=== PATIENT | female | born 1950 | race Caucasian/White ===

== ENCOUNTER → 2018-08-25 | Outpatient (CLI) | payer MEDICARE ==
[~2018-08-25] MED LIST: AMBIEN10 MG PO; ASPIRIN81 M1; ATORVASTATIN CA20 MG; CALCIUM600 MG; CULTURELLE1 EACH; DEXILANT60 MG; FOLIC ACID1 MG; HYOSCYAMINE0.125 M2 PO; METHOTREXA25 MG/1 ML; METOPROLOL SUCC50 MG PO; METROGEL; MULTIVITAMIN; OMEGA 3 KRILL OIL; PAROXETINE HC37.5 MG PO; PREMARIN0.625 MG; RAMIPRIL10 MG PO; SOMA350 MG PO; SYNTHROID88 MCG; VICOPROFEN 2001 EACH; VITAMIN D5000 UNIT PO; XANAX0.5 MG
== END ==
LOC: RAD 08:56
PROVIDERS: ATTEND Family Medicine
DX: I10 Essential (primary) hypertension (principal)
CPT/HCPCS: 93306

== ENCOUNTER 2019-03-18 01:26 | Inpatient (IN) | payer MEDICARE ==
[~2019-03-18] VITALS: Ht 154.9 cm; Wt 99.8 kg
[2019-03-18] VITALS (8 sets, daily range): BP systolic 108–116; BP diastolic 52–65
[2019-03-18] MEDS ORDERED: MORPHINE SULFATE 2 MG/ML SYR 1ML IV STA (01:28)
[2019-03-18] MEDS ORDERED: PANTOPRAZOLE 40 MG 10ML VIAL IV STA ×2 (01:28→04:47)
[2019-03-18] MEDS ORDERED: ONDANSETRON HCL INJ 2MG/ML 2ML 2 MG/ML VIAL IV STA (01:28)
[2019-03-18] MEDS ORDERED: SODIUM CHLORIDE 0.9% 1000ML 1,000 ML IV ONE (01:30)
--- OUTSIDE RECORDS SUMMARY | 2019-03-18 01:38 | XMS REPORT ---
Author Author [facility] Address Unknown Phone Unavailable Care Team Providers Care Retail Store Associate Name Role Phone Unavailable Unavailable Payers Payer Name Policy Type Policy Number Effective Date Expiration Date Problems This patient has no known problems. Allergies, Adverse Reactions, Alerts Allergy Name Allergy Type Status Severity Reaction(s) Onset Date Inactive Date Treating Clinician Comments CODEINE DA Active U 2008-09-10 00:00:00 No Known Contrast Allergies DA Active U 2008-09-10 00:00:00 No Known Food Allergies DA Active U 2008-09-10 00:00:00 No Known Other Allergies DA Active U 2008-09-10 00:00:00 PENICILLIN DA Active U 2008-09-10 00:00:00 Medications This patient has no known medications.
[2019-03-18 01:48] LABS: BILIRUBIN,URINE NEGATIVE (NEGATIVE); CLARITY,URINE CLEAR (CLEAR); COLOR,URINE YELLOW (YELLOW); KETONES,URINE NEGATIVE (NEGATIVE); LEUKOCYTE ESTERASE ,URINE NEGATIVE (NEGATIVE); NITRITE,URINE NEGATIVE (NEGATIVE); PROTEIN,URINE DIPSTICK TRACE (NEGATIVE); URINE UROBILINOGEN 0.2 mg/dL (0.2 - 1)
[2019-03-18] MEDS ORDERED: PANTOPRAZOLE 40 MG 10ML VIAL ONE (02:04)
[2019-03-18] MEDS ORDERED: ONDANSETRON HCL INJ 2MG/ML 2ML 2 MG/ML VIAL ONE (02:04)
[2019-03-18] MEDS ORDERED: SODIUM CHLORIDE 0.9% 1000ML 1,000 ML ONE (02:04)
[2019-03-18 02:06] LABS: BACTERIA,URINE FEW /HPF; EPITHELIAL CELLS,URINE RARE /LPF; WBC,URINE (MAN) 0-5 /HPF (0-5)
[2019-03-18 02:08] LABS: ALANINE AMINOTRANSFERASE 29 IU/L (0-55); ALBUMIN 3.4 g/dL (3.5-5.0); ALBUMIN/GLOBULIN RATIO 1.1 (0.8-2.0); ALKALINE PHOSPHATASE 103 IU/L (40-150); ANION GAP 15.2 mmol/L (8-16); BLOOD UREA NITROGEN 13 mg/dL (7-26); BUN/CREATININE RATIO 13 (6-25); CALCIUM 9.1 mg/dL (8.4-10.2); CARBON DIOXIDE 22 mmol/L (22-29); CHLORIDE 109 mmol/L (98-107); CREATINE KINASE 57 IU/L (29-168); CREATININE, SERUM 0.98 mg/dL (0.57-1.11); EST GLOMERULAR FILTRATION RATE 56 ML/MIN (60-); GLUCOSE 155 mg/dL (74-118); POTASSIUM 4.2 mmol/L (3.5-5.1); SODIUM 142 mmol/L (136-145)
[2019-03-18 02:11] LABS: BASOPHILS % 0.2 % (0.0-1.0); EOSINOPHILS # (AUTO) 0.1 (0.0-0.4); EOSINOPHILS % 0.6 % (0.0-6.0); HEMATOCRIT 46.7 % (34.2-44.1); HEMOGLOBIN 14.6 g/dL (12.0-16.0); LYMPHOCYTES # (AUTO) 0.4 (1.0-3.2); MEAN CORPUSCULAR HGB CONC 31.3 g/dL (31-35); MEAN CORPUSCULAR VOLUME 83.2 fL (81-99); MONOCYTES # (AUTO) 0.6 (0.2-0.8); MONOCYTES % 3.4 % (4.4-11.3); NEUTROPHILS # (AUTO) 16.7 (2.1-6.9); NEUTROPHILS % 93.5 % (38.7-80.0); PLATELET COUNT 309 x10e3/uL (140-360); RED BLOOD COUNT 5.61 x10e6/uL (3.6-5.1); RED CELL DISTRIBUTION WIDTH 15.9 % (11.7-14.4)
[2019-03-18] MEDS ORDERED: MORPHINE SULFATE 2 MG/ML SYR 1ML ONE (02:12)
[2019-03-18] MEDS ORDERED: PROMETHAZINE HCL (IM) 25 MG/ML VIAL IM ONE (02:15)
[2019-03-18 02:55] LABS: AMYLASE 164 U/L (25-125); LIPASE 332 U/L (8-78)
[2019-03-18] MEDS ORDERED: IOPAMIDOL 370 MG/ML 200 ML INFUS..BTL INJ ONE (03:41)
[2019-03-18] MEDS ORDERED: SODIUM CHLORIDE 0.9% 50ML 50 ML ONE (03:41)
--- NOTE | 2019-03-18 04:26 | Diagnostic Imaging Report ---
CT Abdomen And Pelvis with Intravenous Contrast INDICATION: Intermittent upper abdominal pain, nausea, vomiting, diarrhea ^abd pain ^[id number] ^0350 ^Y TECHNIQUE: Thin collimation axial images obtained from the diaphragm to the level of the pubic symphysis following the uneventful administration of 100 cc of low osmolar, nonionic intravenous contrast. Dose reduction techniques used: Automated exposure control, adjustment of the mAs and/or kVp according to patient size, standardized low-dose protocol, and/or iterative reconstruction technique. RADIATION DOSE: Total DLP: 782.16 mGy*cm Estimated effective dose: (DLP x 0.015 x size factor) mSv CTDIvol has been reviewed. It is below the limits set by the Radiation Protocol Committee (RPC). COMPARISON: None. ABDOMEN FINDINGS: Lung Bases: Bibasilar atelectasis. Visualized portion of the mediastinum is normal. Liver: Mild steatosis. No evidence for mass. Gallbladder: Absent. No biliary ductal dilatation. Pancreas: Normal attenuation without mass or ductal dilatation. Spleen: Normal in size. No evidence of mass. Adrenal Glands: No evidence for mass. Kidneys: Right: Normal enhancement. Subcentimeter low attenuating lesion in the upper pole is likely a cyst. No hydronephrosis. Left: Normal enhancement. No soft tissue mass. No hydronephrosis. Lymph Nodes: No lymphadenopathy. Aorta: Normal in diameter PELVIS FINDINGS: Bowel: Stomach: Distended with fluid and appears normal. Small Bowel: Fluid throughout. No focal mural thickening or associated inflammation. Large Bowel: Fluid present throughout. No focal mural thickening or associated inflammation Appendix: Not visualized and may be absent or collapsed. Bladder: Normal. The uterus is absent. No adnexal mass. Peritoneum/retroperitoneum: No free fluid or fluid collection. Bones: Mild degenerative changes of the spine. Soft tissues: A stimulator wire is in the right pelvis terminating in the piriformis muscle. The spinal stimulator is in the posterior right pelvis. IMPRESSION: 1. Fluid throughout the gastrointestinal system without associated inflammation. This may be secondary to gastroenteritis. No evidence of bowel obstruction. 2. Mild steatosis. Signed by: Dr. Janine Aguirre MD on 03/18/2019 4:22 AM
[2019-03-18] MEDS ORDERED: HYDROMORPHONE 1MG/1ML INJ IV PRN (05:00)
[2019-03-18] MEDS: LEVOFLOXACIN 500MG/D5W 100ML 100 ML IV SCH (05:08)
[2019-03-18] MEDS: SODIUM CHLORIDE 0.9% 1000ML 1,000 ML IV SCH ×4 (05:08→23:01)
[2019-03-18] MEDS: ONDANSETRON HCL INJ 2MG/ML 2ML 2 MG/ML VIAL IV PRN (06:00)
[2019-03-18] MEDS: METRONIDAZOLE 500MG/NS 100ML 100 ML IV SCH ×4 (06:00→23:50)
[2019-03-18 06:58] LABS: CHOL/HDL RATIO 2.6 (3.0-3.6)
[2019-03-18] MEDS ORDERED: ACETAMINOPHEN 1000 MG/100 ML IV PRN (07:00)
--- NOTE | 2019-03-18 07:00 | NUR ---
BEDSIDE REPORT RECEIVED FROM NIGHT RN. PT DENIES NEEDS AT THIS TIME.
[2019-03-18] MEDS ORDERED: DEXILANT60 MG PO (07:18)
[2019-03-18] MEDS ORDERED: LIOTHYRONINE SO5 MCG PO (07:18)
[2019-03-18] MEDS ORDERED: RAMIPRIL5 MG PO (07:18)
[2019-03-18] MEDS ORDERED: SYNTHROID88 MCG PO (07:18)
[2019-03-18] MEDS ORDERED: NORVASC5 MG PO (07:18)
[2019-03-18] MEDS ORDERED: HYDRALAZINE HCL 20 MG/ML VIAL IV PRN (07:30)
[2019-03-18] MEDS ORDERED: PANTOPRAZOLE 40 MG 10ML VIAL IV SCH (09:00)
[2019-03-18] MEDS: PANTOPRAZOLE 40 MG 10ML VIAL IV SCH (09:31)
--- NOTE | 2019-03-18 12:07 | History and Physical ---
REASON FOR ADMISSION: The patient is a 68-year-old female, who comes in with acute abdominal pain and diarrhea and dehydration. HISTORY OF PRESENT ILLNESS: Ms. Humphries is a 68-year-old with history of hypertension, hyperlipidemia, was in usual state of health until the patient was having lunch with her children. The patient noticed that she started to have some fever and congestion, and the patient also had some diarrhea. Apparently, the family did go through a gastrointestinal virus that has been ongoing. The patient thought this would be the case and decided to wait, but over the evening the patient's abdominal pain increased in intensity. The patient had florid amount of diarrhea and the patient could not move because of muscle pain. The patient came in here and was admitted for dehydration, and also for questionable pancreatitis because of elevated lipase levels. PAST MEDICAL HISTORY: History of hypertension, history of hypothyroidism, history of hyperlipidemia, history of reflux esophagitis. MEDICATIONS: As per medical reconciliation sheet. PAST SURGICAL HISTORY: Appendectomy, cholecystectomy, hysterectomy, knee replacements in the past. ALLERGIES: ALLERGIC TO PENICILLIN AND CODEINE. SOCIAL HISTORY: No EtOH. No IV drug abuse. Lives with . FAMILY HISTORY: History of hypertension and dementia in the family. REVIEW OF SYSTEMS: Negative for chest pain. No shortness of breath. Positive for nausea. Positive for vomiting. Positive for diarrhea. No rectal bleeding. No constipation. Abdominal pain positive. No diplopia. Positive for headaches. No blurry vision. PHYSICAL EXAMINATION: VITAL SIGNS: Temperature is 100.6, pulse of 94, respirations of 18, blood pressure is 116/65, pulse oximetry of 97% O2 on room air. HEENT: Normocephalic, atraumatic. The patient appears sick. No icterus present. CVS: S1 and S2 normal. Regular rate and rhythm. ABDOMEN: Slightly distended. Nontender. EXTREMITIES: No clubbing no cyanosis, and/or no edema. IMAGING STUDIES: 1. Abdominal CT shows fluid throughout the gastrointestinal system with associated inflammation secondary to gastritis. 2. Mild steatosis. LABORATORY VALUES: Initial white count of 17,000, hemoglobin of 14.6, hematocrit of 46.7, neutrophil count is 93.5. Chemistry; sodium 142, potassium 4.2, BUN of 13, creatinine 0.98. ALT and AST normal. Troponin is less than 0.001. Amylase is 164, lipase is 332, total HDL was 58. ASSESSMENT: 1. Pancreatitis by labs. 2. Gastroenteritis upon examination. 3. Dehydration. 4. Leukocytosis. 5. History of hypertension. 6. History of hyperlipidemia. 7. History of hypothyroidism. PLAN: At this point, we will keep the patient n.p.o. The patient is on 175 mL of normal saline at this time. We will keep her on till 6 o'clock and taper off to 125 mL an hour. The patient is getting Levaquin and Flagyl at this time, acetaminophen through IV. The patient is also on hydromorphone 1 mg q.6 hours as needed for pain and also the patient is getting Zofran IV q.4 hours as needed. Further recommendation per clinical course. Medications will be reconciled once the patient is started back on p.o. feedings. At this time, we will keep her on IV medications including hydralazine for blood pressure control. Further recommendation per clinical course. We will continue to monitor the patient. Blood work will be repeated tomorrow. MD HARDY Tsai/MODL /[id number]
[2019-03-19] VITALS (8 sets, daily range): BP systolic 95–134; BP diastolic 48–62
[2019-03-19] MEDS: LEVOFLOXACIN 500MG/D5W 100ML 100 ML IV SCH (04:42)
[2019-03-19 05:24] LABS: BASOPHILS % 0.4 % (0.0-1.0); EOSINOPHILS # (AUTO) 0.1 (0.0-0.4); EOSINOPHILS % 1.1 % (0.0-6.0); HEMATOCRIT 37.9 % (34.2-44.1); HEMOGLOBIN 11.6 g/dL (12.0-16.0); LYMPHOCYTES # (AUTO) 1.3 (1.0-3.2); LYMPHOCYTES % 22.2 % (18.0-39.1); MEAN CORPUSCULAR HEMOGLOBIN 25.9 pg (28-32); MEAN CORPUSCULAR HGB CONC 30.6 g/dL (31-35); MEAN CORPUSCULAR VOLUME 84.6 fL (81-99); MONOCYTES # (AUTO) 0.5 (0.2-0.8); MONOCYTES % 8.7 % (4.4-11.3); NEUTROPHILS # (AUTO) 3.8 (2.1-6.9); NEUTROPHILS % 67.2 % (38.7-80.0); PLATELET COUNT 202 x10e3/uL (140-360); RED BLOOD COUNT 4.48 x10e6/uL (3.6-5.1); RED CELL DISTRIBUTION WIDTH 16.5 % (11.7-14.4)
[2019-03-19 05:46] LABS: ALANINE AMINOTRANSFERASE 38 IU/L (0-55); ALBUMIN 2.5 g/dL (3.5-5.0); ALBUMIN/GLOBULIN RATIO 0.9 (0.8-2.0); ALKALINE PHOSPHATASE 61 IU/L (40-150); AMYLASE 25 U/L (25-125); ANION GAP 9.7 mmol/L (8-16); BLOOD UREA NITROGEN 14 mg/dL (7-26); BUN/CREATININE RATIO 18 (6-25); CALCIUM 8.5 mg/dL (8.4-10.2); CARBON DIOXIDE 22 mmol/L (22-29); CHLORIDE 112 mmol/L (98-107); CREATININE, SERUM 0.79 mg/dL (0.57-1.11); EST GLOMERULAR FILTRATION RATE > 60 ML/MIN (60-); GLUCOSE 100 mg/dL (74-118); LIPASE 14 U/L (8-78); POTASSIUM 3.7 mmol/L (3.5-5.1); SODIUM 140 mmol/L (136-145)
[2019-03-19] MEDS: METRONIDAZOLE 500MG/NS 100ML 100 ML IV SCH ×3 (06:21→18:04)
--- NOTE | 2019-03-19 07:00 | NUR ---
BEDSIDE SHIFT REPORT RECEIVED FROM THE REHABILITATION SERVICES AIDE RN. EDUCATED PT ABOUT FALL PRECAUTIONS. CALL LIGHT WITH IN EASY REACH. INSTRUCTED PT TO USE CALL LIGHT FOR ALL THE NEEDS. PT VERBALIZED UNDERSTANDING. BED IS LOW AND LOCKED. SIDE RAILS X2. PT DENIES NEEDS AT THIS TIME.
[2019-03-19] MEDS: SODIUM CHLORIDE 0.9% 1000ML 1,000 ML IV SCH ×2 (07:04→15:55)
--- NOTE | 2019-03-19 07:23 | Progress Note ---
DATE: 03/19/2019 SUBJECTIVE: The patient came in with acute gastroenteritis and also pancreatitis. Currently, the patient is feeling better, still having diarrhea and continues with some nausea. No chest pain. No shortness of breath. The patient is asking for fluids at this time. OBJECTIVE: VITAL SIGNS: Temperature is 97.5, T-max is 100.1, pulse of 87, respirations of 18, blood pressure is 121/58, pulse oximetry of 97% on 2 L of nasal cannula. HEENT: Normocephalic and atraumatic. Pupils are reactive to light and accommodation. The patient has no icterus present. CVS: S1 and S2 normal. Regular rate and rhythm. ABDOMEN: Tender in the epigastrium. EXTREMITIES: No clubbing, no cyanosis, no edema. MEDICATIONS: The patient is on Flagyl, Levaquin, pantoprazole, and Zofran. The patient is on hydralazine IV for hypertension control and hydromorphone for pain. LABORATORY VALUES: White count has come down to 5.62, hemoglobin of 11.6, hematocrit 37.9, neutrophil count is 67.2. No imaging studies were done today, and lipase has normalized too. ASSESSMENT: 1. Pancreatitis, resolving. 2. Gastroenteritis. 3. Dehydration. 4. Leukocytosis. 5. Hypertension. 6. Hyperlipidemia. 7. Hypothyroidism. PLAN: The patient's diet can be advanced from clear liquid to full liquid by the evening and then probably soft mechanical tonight and the patient is tolerating food, can be discharged in the morning on Levaquin and Flagyl. Further recommendation per clinical course. We will continue to monitor the patient. MD HARDY Tsai/MODL /[id number]
[2019-03-19 07:42] LABS: ANISOCYTOSIS SLIGHT; EOSINOPHILS % (MANUAL) 1 % (0-7); LYMPHOCYTES % (MANUAL) 21 % (19-48); MONOCYTES % (MANUAL) 6 % (3.4-9.0); NEUTROPHILS % (MANUAL) 68 % (40-74); POIKILOCYTOSIS SLIGHT
[2019-03-19 07:43] LABS: BURR CELLS SLIGHT; PLATELET ESTIMATE ADEQUATE; PLATELET MORPHOLOGY COMMENT FEW LARGE; RBC MORPHOLOGY COMMENT ABNORMAL
[2019-03-19] MEDS: LIOTHYRONINE SODIUM 5 MCG TAB PO SCH (08:18)
[2019-03-19] MEDS: RAMIPRIL 5 MG CAP PO SCH (08:19)
[2019-03-19] MEDS: AMLODIPINE BESYLATE 5 MG TAB PO SCH (08:20)
[2019-03-19] MEDS: PANTOPRAZOLE 40 MG 10ML VIAL IV SCH (08:20)
[2019-03-19 08:26] LABS: OCCULT BLOOD STOOL POSITIVE (NEGATIVE); WBC,FECAL (FECAL LACTOFERRIN) POSITIVE (NEGATIVE)
--- NOTE | 2019-03-19 15:37 | NUR ---
PT C/O ABDOMINAL PAIN AND NOT TOLERATING CLEAR LIQUID DIET. INFORMED THE SAME TO DR. ARGUETA. CHANGE PT TO NPO PER THE
--- NOTE | 2019-03-19 15:39 | NUR ---
PT C/O HEADACHE. NEW ORDER FOR TYLENOL PO WITH SIPS OF WATER PER DR. ARGUETA
[2019-03-19] MEDS ORDERED: ACETAMINOPHEN 325 MG TAB PO PRN (15:45)
[2019-03-19] MEDS: ONDANSETRON HCL INJ 2MG/ML 2ML 2 MG/ML VIAL IV PRN (16:28)
--- NOTE | 2019-03-19 19:00 | NUR ---
BEDSIDE SHIFT REPORT GIVEN TO THE POURER CRANE LADLE RN. PT DENIED FURTHER NEEDS.
--- NOTE | 2019-03-19 19:25 | NUR ---
Patient received lying in bed. AAO x 4. No complaints of pain. No signs of respiratory distress. IVF infusing at 100 cc /hr. Fall precautions implemented. Patient instructed to call for assistance when needed. Call light within reach.
[2019-03-20] MEDS: METRONIDAZOLE 500MG/NS 100ML 100 ML IV SCH ×4 (00:45→17:11)
[2019-03-20] MEDS: SODIUM CHLORIDE 0.9% 1000ML 1,000 ML IV SCH ×3 (03:04→21:35)
[2019-03-20] MEDS: LEVOFLOXACIN 500MG/D5W 100ML 100 ML IV SCH (04:45)
[2019-03-20 05:47] VITALS: BP 130/61
[2019-03-20 05:57] LABS: ANION GAP 13.3 mmol/L (8-16); BLOOD UREA NITROGEN 9 mg/dL (7-26); BUN/CREATININE RATIO 11 (6-25); CALCIUM 9.1 mg/dL (8.4-10.2); CARBON DIOXIDE 21 mmol/L (22-29); CHLORIDE 110 mmol/L (98-107); EST GLOMERULAR FILTRATION RATE > 60 ML/MIN (60-); GLUCOSE 92 mg/dL (74-118); POTASSIUM 3.3 mmol/L (3.5-5.1); SODIUM 141 mmol/L (136-145)
[2019-03-20] MEDS: LEVOTHYROXINE SODIUM 88 MCG TAB PO SCH (06:08)
[2019-03-20] MEDS: LIOTHYRONINE SODIUM 5 MCG TAB PO SCH (06:08)
[2019-03-20] MEDS ORDERED: POTASSIUM CHLORIDE 20MEQ/100ML 100 ML IV ONE (06:30)
--- NOTE | 2019-03-20 07:00 | NUR ---
BEDSIDE SHIFT REPORT RECEIVED FROM THE BODY TECHNICIAN RN. EDUCATED PT ABOUT FALL PRECAUTIONS. CALL LIGHT WITH IN EASY REACH. INSTRUCTED PT TO USE CALL LIGHT FOR ALL THE NEEDS. PT VERBALIZED UNDERSTANDING. BED IS LOW AND LOCKED. SIDE RAILS X2. PT DENIES NEEDS AT THIS TIME.
--- NOTE | 2019-03-20 07:00 | NUR ---
Patient resting comfortably. Walking rounds done. Shift report given to oncoming nurse.
--- NOTE | 2019-03-20 07:10 | NUR ---
PAGED DR. MALONEY AND LEFT MESSAGE REGARDING NEW CONSULT PER DR. ARGUETA.
--- NOTE | 2019-03-20 07:31 | Progress Note ---
DATE: 03/20/2019 SUBJECTIVE: The patient is a 68-year-old female, who comes with acute gastroenteritis symptoms and was diagnosed with acute pancreatitis. The patient is currently still nauseous, tried to have a clear liquid diet yesterday, although the patient is not able to tolerate it and put back at n.p.o. and the patient currently continues to have some epigastric pain. MEDICATIONS: Currently on Levaquin, liothyronine, levothyroxine, metronidazole, Zofran as needed and hydromorphone for pain, amlodipine for blood pressure and ramipril for blood pressure too. OBJECTIVE: VITAL SIGNS: Temperature is 98.0, pulse of 71, respirations of 18, blood pressure is 130/61, pulse oximetry of 96% and the patient is on room O2. HEENT: Normocephalic and atraumatic. There is no icterus present. CVS: S1 and S2 normal. Regular rate and rhythm. ABDOMEN: Tender in the epigastrium. Bowel sounds are positive. EXTREMITIES: No clubbing, no cyanosis, and no edema. LABORATORY VALUES: From yesterday, the white count came down to 5.60 from 17,000. Sodium today is 143, potassium 3.3, BUN of 9, creatinine 0.80. Lipase is pending, but it had trended down from . ASSESSMENT: 1. Acute pancreatitis by labs. 2. Gastroenteritis. 3. Acute epigastric pain. 4. Hypokalemia. 5. History of hypertension. 6. History of hyperlipidemia. PLAN: Replace potassium. A consult with Dr. Anderson will be done. The patient also probably needs an endoscopy secondary to abdominal pain that is relentless. Continue on IV antibiotics. We will probably cut back on Flagyl and Levaquin to see if nausea is related to the antibiotic. Further recommendation per clinical course. We will continue to monitor the patient along with consult with Dr. Anderson. MD HARDY Tsai/MODL /[id number]
[2019-03-20 08:02] VITALS: BP 128/70
[2019-03-20] MEDS: RAMIPRIL 5 MG CAP PO SCH (09:21)
[2019-03-20] MEDS: AMLODIPINE BESYLATE 5 MG TAB PO SCH (09:21)
[2019-03-20] MEDS: PANTOPRAZOLE 40 MG 10ML VIAL IV SCH (09:21)
[2019-03-20 12:00] VITALS: BP 147/63
--- NOTE | 2019-03-20 15:15 | NUR ---
PAGED DR. MALONEY REGARDING NEW CONSULT.
[2019-03-20 16:00] VITALS: BP 146/66
--- NOTE | 2019-03-20 19:00 | NUR ---
BEDSIDE SHIFT REPORT GIVEN TO THE PLC TECHNICIAN RN. PT DENIED FURTHER NEEDS.
--- NOTE | 2019-03-20 19:30 | NUR ---
Patient received lying in bed. AAO x 4. No acute distress noted. Patient reminded about upcoming EGD procedure and NPO status. Patient verbalized understanding. Call light reach.
[2019-03-20 20:00] VITALS: BP 148/66
--- NOTE | 2019-03-20 20:15 | Consultation ---
DATE OF CONSULTATION: 03/20/2019 HISTORY OF PRESENT ILLNESS: This is a 68-year-old, who yesterday presented to the hospital because of abdominal pain, nausea, vomiting, and some diarrhea. Diarrhea is better, however, the pain still persists along with some nausea. Her labs on admission shows mildly elevated lipase, but is already back to normal and her CAT scan of the abdomen and pelvis on admission shows possible gastroenteritis and fatty liver. She apparently has a history of ulcer disease in the past. PAST MEDICAL PROBLEMS: Significant for history of hypertension, hypothyroidism, history of hyperlipidemia, history of reflux with possible [place]. She is status post appendectomy, cholecystectomy, hysterectomy, and knee replacement. ALLERGIES: PENICILLIN AND CODEINE. SOCIAL HISTORY: No alcohol use. FAMILY HISTORY: Hypertension and dementia. REVIEW OF SYSTEMS: At this point, denies any chest pain or shortness of breath. Denies any dysphagia, odynophagia, dysuria, hematuria, or any kind of syncopal episode. PHYSICAL EXAMINATION: GENERAL: The patient is awake and alert, appears to be stable, not in acute distress at this point. VITAL SIGNS: Afebrile currently with stable vital signs. HEAD, EYES, EARS, NOSE, AND THROAT: Normocephalic and atraumatic. Sclerae are anicteric. NECK: Supple. HEART: Regular. ABDOMEN: Soft. There is some tenderness mainly in the epigastric area. There is no rebound or mass. EXTREMITIES: No cyanosis. No clubbing. LABORATORY VALUES: As of today, the potassium is 3.3. Again, lipase is already normal as of yesterday. Hemoglobin of 11.6 and it has dropped from 14.6 on admission. WBC was 7.8 on admissions, dropped to 5.2. Stool occult blood is positive. IMPRESSION: 1. Abdominal pain, nausea, vomiting, and also some diarrhea, probably gastroenteritis. Rule out possibility of peptic ulcer disease. I do not think the patient has pancreatitis. 2. History of hypertension. 3. History of hypothyroidism. RECOMMENDATIONS: Continue current care at this point. We will proceed with EGD for further evaluation tomorrow. Follow labs clinically. Daniel Anderson MD DHD/MODL /[id number] cc: Archie Holloway MD
[2019-03-20 21:00] VITALS: BP 148/66
[2019-03-21] VITALS: BP 135/60
[2019-03-21] MEDS: METRONIDAZOLE 500MG/NS 100ML 100 ML IV SCH ×2 (00:50→05:52)
[2019-03-21 04:00] VITALS: BP 144/62
[2019-03-21] MEDS: LEVOFLOXACIN 500MG/D5W 100ML 100 ML IV SCH (04:55)
[2019-03-21 05:12] LABS: BASOPHILS % 0.4 % (0.0-1.0); EOSINOPHILS # (AUTO) 0.2 (0.0-0.4); HEMATOCRIT 36.1 % (34.2-44.1); HEMOGLOBIN 11.5 g/dL (12.0-16.0); LYMPHOCYTES # (AUTO) 1.8 (1.0-3.2); LYMPHOCYTES % 32.7 % (18.0-39.1); MEAN CORPUSCULAR HEMOGLOBIN 25.8 pg (28-32); MEAN CORPUSCULAR HGB CONC 31.9 g/dL (31-35); MEAN CORPUSCULAR VOLUME 80.9 fL (81-99); MONOCYTES # (AUTO) 0.5 (0.2-0.8); MONOCYTES % 9.6 % (4.4-11.3); NEUTROPHILS # (AUTO) 2.9 (2.1-6.9); NEUTROPHILS % 54.1 % (38.7-80.0); PLATELET COUNT 199 x10e3/uL (140-360); RED BLOOD COUNT 4.46 x10e6/uL (3.6-5.1); RED CELL DISTRIBUTION WIDTH 15.8 % (11.7-14.4)
[2019-03-21 05:31] LABS: ANION GAP 14.4 mmol/L (8-16); BLOOD UREA NITROGEN 7 mg/dL (7-26); BUN/CREATININE RATIO 9 (6-25); CALCIUM 8.6 mg/dL (8.4-10.2); CARBON DIOXIDE 20 mmol/L (22-29); CHLORIDE 112 mmol/L (98-107); CREATININE, SERUM 0.75 mg/dL (0.57-1.11); EST GLOMERULAR FILTRATION RATE > 60 ML/MIN (60-); GLUCOSE 76 mg/dL (74-118); POTASSIUM 3.4 mmol/L (3.5-5.1); SODIUM 143 mmol/L (136-145)
[2019-03-21] MEDS: LEVOTHYROXINE SODIUM 88 MCG TAB PO SCH (06:26)
[2019-03-21] MEDS: LIOTHYRONINE SODIUM 5 MCG TAB PO SCH (06:26)
--- NOTE | 2019-03-21 07:00 | NUR ---
Received patient sitting on the side of the bed with eyes open. Respiration even and unlabored without SOB. Denies pain. Call light in reach.
--- NOTE | 2019-03-21 07:00 | NUR ---
Shift report given to oncoming nurse.
[2019-03-21 08:01] VITALS: BP 156/69
[2019-03-21] MEDS: PANTOPRAZOLE 40 MG 10ML VIAL IV SCH (08:43)
[2019-03-21] MEDS: AMLODIPINE BESYLATE 5 MG TAB PO SCH (09:00)
[2019-03-21] MEDS: RAMIPRIL 5 MG CAP PO SCH (09:00)
[2019-03-21 09:03] VITALS: BP 156/69
[2019-03-21] MEDS: SODIUM CHLORIDE 0.9% 1000ML 1,000 ML IV SCH (09:04)
--- NOTE | 2019-03-21 09:23 | Progress Note ---
DATE: 03/21/2019 SUBJECTIVE: The patient is a 68-year-old female, who comes in with acute abdominal pain. The patient is scheduled for upper EGD today. The patient is n.p.o., currently tolerating some foods and fluids. No chest pain. No shortness of breath. Has been getting Zofran for nausea control. OBJECTIVE: VITAL SIGNS: Temperature 98.2, pulse 72, respiratory rate 20, blood pressure is 144/62, and pulse oximetry of 94% on room air. HEENT: Normocephalic and atraumatic. Pupils are reactive to light and accommodation. CVS: S1 and S2 normal. Regular rate and rhythm. ABDOMEN: Tender in the epigastrium. EXTREMITIES: No clubbing, no cyanosis, and no edema. LABORATORY VALUES: Potassium is 3.4 and sodium 143. Hematology; white count 5.42, hemoglobin of 11.5, and hematocrit of 36.2. ASSESSMENT: 1. Elevated lipase with pancreatitis. 2. Gastroenteritis. 3. Rule out peptic ulcer disease with the intractable nausea and vomiting. 4. Acute gastritis. 5. Hypokalemia. 6. Hypertension. 7. Hyperlipidemia. PLAN: Continue to monitor the patient. The patient is to have EGD today. Discharge planning after the EGD if no pathology is found. Medications, she is on right now are liothyronine/levothyroxine, metronidazole, Levaquin, ramipril, amlodipine, pantoprazole, Zofran, and hydromorphone. Further recommendation per clinical course plan again, discharge today if EGD is normal. MD HARDY Tsai/FLORIDAL /[id number]
--- NOTE | 2019-03-21 12:22 | NUR ---
patient is transported for EGD at this time.
[2019-03-21 12:23] VITALS: BP 155/66
[2019-03-21 13:30] VITALS: BP 131/53
--- NOTE | 2019-03-21 13:41 | NUR ---
Patient arrived from EGD. Respiration even and unlabored without SOB. Call light in reach.
--- NOTE | 2019-03-21 13:58 | NUR ---
Spoke with Archie Burnett for D/C order. States if patient can tolerate advance to soft diet ordered then patient can be discharged today.
--- NOTE | 2019-03-21 15:00 | NUR ---
PIV to left FA discontinued, Catheter tip intact, no bleeding noted. Patient tolerated soft diet without N/V. Respiration even and unlabored without SOB. Patient is to be discharged to home today.
--- NOTE | 2019-03-21 15:07 | NUR ---
Patient transported via wheelchair to private vehicle. Patient is to be discharged to home. All personal belongings are with patient's family member.
[2019-03-21] MEDS ORDERED: PROPOFOL IV EMULSION 10 MG/ML 20 ML VIAL ONE (18:33)
== END 2019-03-21 15:11 | disposition home or self-care (01) | DRG 385 ==
LOC: ER 01:26 → ERHOLD 05:02 → MERGE 05:02 → MED/SURG2 05:58
PROVIDERS: ADMIT Family Medicine; ATTEND Family Medicine
PROC: 0DB68ZX Excision of Stomach, Via Natural or Artificial Opening Endoscopic, Diagnostic (ICD-10-PCS; principal; 2019-03-21 12:00)
DX: K50.90 Crohn's disease, unspecified, without complications (principal); K85.00 Idiopathic acute pancreatitis without necrosis or infection; D72.829 Elevated white blood cell count, unspecified; Z88.5 Allergy status to narcotic agent; Z88.0 Allergy status to penicillin; I10 Essential (primary) hypertension; E03.9 Hypothyroidism, unspecified; E78.5 Hyperlipidemia, unspecified; Z90.49 Acquired absence of other specified parts of digestive tract; Z82.49 Family history of ischemic heart disease and other diseases of the circulatory system; E86.0 Dehydration; K21.0 Gastro-esophageal reflux disease with esophagitis; K76.0 Fatty (change of) liver, not elsewhere classified; E87.6 Hypokalemia; K27.9 Peptic ulcer, site unspecified, unspecified as acute or chronic, without hemorrhage or perforation; K29.00 Acute gastritis without bleeding; K44.9 Diaphragmatic hernia without obstruction or gangrene
CPT/HCPCS: 36415; 43235; 74177; 80048; 80053; 80061; 81001; 82150; 82270; 82550; 82553; 83630; 83690; 84484; 85025; 87045; 87400; 88305; 88312; 93005; 99284; J1170; J1956; J2270; J2405; J2550; J3480; J7030; Q9967

== ENCOUNTER → 2020-12-15 | Outpatient (CLI) | payer OTHER ==
[~2020-12-15] MED LIST changes: +DEXILANT60 MG PO; +IOPAMIDOL 200 MG/ML 20 ML VIAL IT ONE; +LIDOCAINE HCL 1% LOCAL INJ 20 ML VIAL ONE; +LIOTHYRONINE SO5 MCG PO; +NORVASC5 MG PO; +RAMIPRIL5 MG PO; +SYNTHROID88 MCG PO
[2020-12-15 12:36] LABS: INR 0.9; PARTIAL THROMBOPLASTIN TIME 27.1 seconds (23.8-35.5); PROTHROMBIN TIME 12.3 seconds (11.9-14.5)
== END ==
LOC: DX 12:03
PROVIDERS: ATTEND Family Medicine
DX: M54.16 Radiculopathy, lumbar region (principal)
CPT/HCPCS: 36415; 62304; 72131; 85014; 85049; 85610; 85730; J2001; Q9967

== ENCOUNTER → 2022-08-19 | Day surgery (SDC) | payer MEDICARE ==
[2022-08-17 11:19] LABS: BASOPHILS # (AUTO) 0.1 (0.0-0.1); BASOPHILS % 1.6 % (0.0-1.0); EOSINOPHILS # (AUTO) 0.3 (0.0-0.4); EOSINOPHILS % 4.4 % (0.0-6.0); HEMATOCRIT 37.1 % (34.2-44.1); HEMOGLOBIN 11.6 g/dL (12.0-16.0); LYMPHOCYTES # (AUTO) 2.1 (1.0-3.2); LYMPHOCYTES % 30.4 % (18.0-39.1); MEAN CORPUSCULAR HEMOGLOBIN 27.8 pg (28-32); MEAN CORPUSCULAR HGB CONC 31.3 g/dL (31-35); MEAN CORPUSCULAR VOLUME 88.8 fL (81-99); MONOCYTES # (AUTO) 1.1 (0.2-0.8); MONOCYTES % 16.4 % (4.4-11.3); NEUTROPHILS # (AUTO) 3.2 (2.1-6.9); NEUTROPHILS % 47.2 % (38.7-80.0); PLATELET COUNT 234 x10e3/uL (140-360); RED BLOOD COUNT 4.18 x10e6/uL (3.6-5.1); RED CELL DISTRIBUTION WIDTH 14.6 % (11.7-14.4)
[~2022-08-19] MED LIST changes: +ABILIFY2 MG PO; +ALLOPURINOL100 MG PO; +ARAVA20 MG PO; +ASPIRIN81 MG PO; +BUPIVACAINE HCL 0.5% INJ 30 ML VIAL INJ ONE; +COLESTIPOL HCL1 GM PO; +HYDROCODON-ACE1 EAC9 PO; +KETAMINE HCL INJ 50 MG/ML 10 ML VIAL ONE; +LACTATED RINGER'S 1,000 ML ONE; +LEVOTHYROXINE112 MCG PO; +LIDOCAINE HCL 1% 30ML-PF VIAL ONE; -LIDOCAINE HCL 1% LOCAL INJ 20 ML VIAL ONE; +LIDOCAINE HCL 2% LOCAL INJ 5 ML SDV VIAL INJ ONE; +LIPITOR10 MG PO; +METOPROLOL TART25 MG PO; +MYSOLINE50 MG PO; +OLMESARTAN-HCT1 EAC2 PO; +OZEMPIC0.25 MG/0. SC; +PAROXETINE HCL20 MG PO; +POVIDONE IODINE 0.05% 0.05 % ML PO ONE; +PROPOFOL IV EMULSION 10 MG/ML 20 ML VIAL IV ONE; +SYNTHROID50 MCG PO; +TRIAMCINOLONE ACET 40 MG/ML VIAL ONE; +VIT B12 PO; +VIT D3 PO; +XANAX1 MG PO; +ZOLPIDEM TARTRAT5 MG PO
[2022-08-19 07:05] VITALS: BP 114/67
== END | disposition home or self-care (01) ==
LOC: OR 06:28
PROVIDERS: ATTEND Physical Medicine & Rehabilitation Pain Medicine
DX: M47.896 Other spondylosis, lumbar region (principal); I10 Essential (primary) hypertension; G47.30 Sleep apnea, unspecified; M06.9 Rheumatoid arthritis, unspecified; E66.9 Obesity, unspecified; E07.9 Disorder of thyroid, unspecified; Z88.6 Allergy status to analgesic agent; Z88.0 Allergy status to penicillin; Z01.810 Encounter for preprocedural cardiovascular examination; Z01.812 Encounter for preprocedural laboratory examination; Z79.82 Long term (current) use of aspirin; Z79.1 Long term (current) use of non-steroidal anti-inflammatories (NSAID); Z79.85 Long-term (current) use of injectable non-insulin antidiabetic drugs; Z79.899 Other long term (current) drug therapy; Z68.41 Body mass index [BMI] 40.0-44.9, adult; Z96.651 Presence of right artificial knee joint
CPT/HCPCS: 36415 ×2; 64493; 64494; 64495; 82948; 85025; 93005; J2001 ×2; J2704; J3301; J7121; Q9967; 77003

== ENCOUNTER → 2022-09-09 | Day surgery (SDC) | payer MEDICARE ==
[~2022-09-09] MED LIST changes: +ONDANSETRON HCL INJ 2MG/ML 2ML 2 MG/ML VIAL ONE; -PROPOFOL IV EMULSION 10 MG/ML 20 ML VIAL IV ONE; +PROPOFOL IV EMULSION 10 MG/ML 20 ML VIAL ONE
[2022-09-09 07:21] VITALS: TEMP 97.4
[2022-09-09 07:50] VITALS: BP 112/82; PULSE 61; RESP 18; O2SAT 97
== END | disposition home or self-care (01) ==
LOC: OR 08:15
PROVIDERS: ATTEND Physical Medicine & Rehabilitation Pain Medicine
DX: M47.896 Other spondylosis, lumbar region (principal); R93.7 Abnormal findings on diagnostic imaging of other parts of musculoskeletal system; I10 Essential (primary) hypertension; G47.30 Sleep apnea, unspecified; Z88.6 Allergy status to analgesic agent; Z88.0 Allergy status to penicillin; Z79.82 Long term (current) use of aspirin; Z79.85 Long-term (current) use of injectable non-insulin antidiabetic drugs; Z79.899 Other long term (current) drug therapy; Z96.651 Presence of right artificial knee joint; Z96.611 Presence of right artificial shoulder joint
CPT/HCPCS: 36415; 64493; 64494; 64495; 82948; J2001 ×2; J2405; J2704; J3301; J7121; Q9967; 77003

== ENCOUNTER → 2023-03-31 | Day surgery (SDC) | payer MEDICARE ==
[2023-03-28 15:25] LABS: BASOPHILS # (AUTO) 0.1 (0.0-0.1); BASOPHILS % 0.8 % (0.0-1.0); EOSINOPHILS # (AUTO) 0.3 (0.0-0.4); EOSINOPHILS % 3.4 % (0.0-6.0); HEMATOCRIT 37.1 % (34.2-44.1); HEMOGLOBIN 11.6 g/dL (12.0-16.0); LYMPHOCYTES # (AUTO) 2.5 (1.0-3.2); LYMPHOCYTES % 31.9 % (18.0-39.1); MEAN CORPUSCULAR HEMOGLOBIN 28.6 pg (28-32); MEAN CORPUSCULAR HGB CONC 31.3 g/dL (31-35); MEAN CORPUSCULAR VOLUME 91.4 fL (81-99); MONOCYTES # (AUTO) 0.9 (0.2-0.8); MONOCYTES % 11.1 % (4.4-11.3); NEUTROPHILS # (AUTO) 4.1 (2.1-6.9); NEUTROPHILS % 52.5 % (38.7-80.0); PLATELET COUNT 183 x10e3/uL (140-360); RED BLOOD COUNT 4.06 x10e6/uL (3.6-5.1); RED CELL DISTRIBUTION WIDTH 14.8 % (11.7-14.4); WHITE BLOOD COUNT 7.69 x10e3/uL (4.8-10.8)
[~2023-03-31] MED LIST changes: -BUPIVACAINE HCL 0.5% INJ 30 ML VIAL INJ ONE; +FENTANYL CITRATE/PF 100MCG/2 ML INJ ONE; -KETAMINE HCL INJ 50 MG/ML 10 ML VIAL ONE; +NEXIUM40 MG PO; +OLMESARTAN MEDOX5 MG PO; -ONDANSETRON HCL INJ 2MG/ML 2ML 2 MG/ML VIAL ONE; -POVIDONE IODINE 0.05% 0.05 % ML PO ONE
[2023-03-31 07:58] VITALS: TEMP 97.3
[2023-03-31 08:22] VITALS: BP 118/70; PULSE 71; RESP 18; O2SAT 98
== END | disposition home or self-care (01) ==
LOC: OR 06:46
PROVIDERS: ATTEND Physical Medicine & Rehabilitation Pain Medicine
DX: M47.896 Other spondylosis, lumbar region (principal); M46.1 Sacroiliitis, not elsewhere classified; M70.62 Trochanteric bursitis, left hip; M70.61 Trochanteric bursitis, right hip; R93.6 Abnormal findings on diagnostic imaging of limbs; R93.7 Abnormal findings on diagnostic imaging of other parts of musculoskeletal system; M45.9 Ankylosing spondylitis of unspecified sites in spine; M06.8 Other specified rheumatoid arthritis; G47.33 Obstructive sleep apnea (adult) (pediatric); I10 Essential (primary) hypertension; E78.5 Hyperlipidemia, unspecified; K21.9 Gastro-esophageal reflux disease without esophagitis; R73.03 Prediabetes; E03.9 Hypothyroidism, unspecified; F41.9 Anxiety disorder, unspecified; Z88.6 Allergy status to analgesic agent; Z88.0 Allergy status to penicillin; Z01.810 Encounter for preprocedural cardiovascular examination; Z01.812 Encounter for preprocedural laboratory examination; Z79.82 Long term (current) use of aspirin; Z79.85 Long-term (current) use of injectable non-insulin antidiabetic drugs; Z79.899 Other long term (current) drug therapy
CPT/HCPCS: 36415 ×2; 64493; 64494; 82948; 85025; 93005; J2001 ×2; J2704; J3010; J3301; J7121; Q9967; 77002

== ENCOUNTER → 2024-02-01 | Day surgery (SDC) | payer MEDICARE ==
[2024-01-27 09:58] LABS: BASOPHILS # (AUTO) 0.1 (0.0-0.1); BASOPHILS % 0.7 % (0.0-1.0); EOSINOPHILS # (AUTO) 0.2 (0.0-0.4); EOSINOPHILS % 2.5 % (0.0-6.0); HEMATOCRIT 36.9 % (34.2-44.1); HEMOGLOBIN 11.1 g/dL (12.0-16.0); LYMPHOCYTES # (AUTO) 2.3 (1.0-3.2); LYMPHOCYTES % 28.6 % (18.0-39.1); MEAN CORPUSCULAR HEMOGLOBIN 28.6 pg (28-32); MEAN CORPUSCULAR HGB CONC 30.1 g/dL (31-35); MEAN CORPUSCULAR VOLUME 95.1 fL (81-99); MONOCYTES # (AUTO) 0.8 (0.2-0.8); NEUTROPHILS # (AUTO) 4.7 (2.1-6.9); PLATELET COUNT 244 x10e3/uL (140-360); RED BLOOD COUNT 3.88 x10e6/uL (3.6-5.1); RED CELL DISTRIBUTION WIDTH 15.7 % (11.7-14.4); WHITE BLOOD COUNT 8.09 x10e3/uL (4.8-10.8)
[~2024-02-01] MED LIST changes: +BUPIVACAINE HCL 0.5% INJ 30 ML VIAL INJ ONE; +DEXMEDETOMIDINE HCL 200 MCG/2 ML VIAL ONE; -FENTANYL CITRATE/PF 100MCG/2 ML INJ ONE; -LACTATED RINGER'S 1,000 ML ONE; -LIDOCAINE HCL 1% 30ML-PF VIAL ONE; +MULTI-VITAMIN1 EACH PO; +PHENYLEPHRINE HCL 1% 10 MG/ML VIAL ONE
[2024-02-01] MEDS: LACTATED RINGER'S 1,000 ML ONE (08:31)
[2024-02-01 11:00] VITALS: BP 117/76; PULSE 58; RESP 14; O2SAT 100
== END | disposition home or self-care (01) ==
LOC: OR 08:10
PROVIDERS: ATTEND Physical Medicine & Rehabilitation Pain Medicine
DX: M46.1 Sacroiliitis, not elsewhere classified (principal); M70.62 Trochanteric bursitis, left hip; M70.61 Trochanteric bursitis, right hip; M47.896 Other spondylosis, lumbar region; M79.7 Fibromyalgia; G89.29 Other chronic pain; G47.33 Obstructive sleep apnea (adult) (pediatric); E03.9 Hypothyroidism, unspecified; E78.5 Hyperlipidemia, unspecified; K21.9 Gastro-esophageal reflux disease without esophagitis; E11.22 Type 2 diabetes mellitus with diabetic chronic kidney disease; I12.9 Hypertensive chronic kidney disease with stage 1 through stage 4 chronic kidney disease, or unspecified chronic kidney disease; N18.9 Chronic kidney disease, unspecified; F41.9 Anxiety disorder, unspecified; F32.A Depression, unspecified; Z88.6 Allergy status to analgesic agent; Z88.0 Allergy status to penicillin; Z01.812 Encounter for preprocedural laboratory examination; Z79.82 Long term (current) use of aspirin; Z79.85 Long-term (current) use of injectable non-insulin antidiabetic drugs; Z79.899 Other long term (current) drug therapy
CPT/HCPCS: 36415; 85025; G0260; J2003; J2371; J2704; J3301; J7121; Q9967; 77002

== ENCOUNTER 2024-03-24 16:02 | Inpatient (IN) | payer MEDICARE ==
[~2024-03-24] VITALS: Ht 154.9 cm; Wt 84.4 kg
[~2024-03-24 16:02] MED LIST changes: -BUPIVACAINE HCL 0.5% INJ 30 ML VIAL INJ ONE; -DEXMEDETOMIDINE HCL 200 MCG/2 ML VIAL ONE; -IOPAMIDOL 200 MG/ML 20 ML VIAL IT ONE; -LIDOCAINE HCL 2% LOCAL INJ 5 ML SDV VIAL INJ ONE; -PHENYLEPHRINE HCL 1% 10 MG/ML VIAL ONE; -PROPOFOL IV EMULSION 10 MG/ML 20 ML VIAL ONE; -TRIAMCINOLONE ACET 40 MG/ML VIAL ONE
[2024-03-24 17:05] LABS: BASOPHILS # (AUTO) 0.1 (0.0-0.1); BASOPHILS % 0.5 % (0.0-1.0); HEMATOCRIT 37.1 % (34.2-44.1); HEMOGLOBIN 11.5 g/dL (12.0-16.0); LYMPHOCYTES # (AUTO) 0.7 (1.0-3.2); LYMPHOCYTES % 4.9 % (18.0-39.1); MEAN CORPUSCULAR HEMOGLOBIN 29.1 pg (28-32); MEAN CORPUSCULAR VOLUME 93.9 fL (81-99); MONOCYTES # (AUTO) 0.6 (0.2-0.8); MONOCYTES % 4.6 % (4.4-11.3); NEUTROPHILS # (AUTO) 12.5 (2.1-6.9); NEUTROPHILS % 89.5 % (38.7-80.0); PLATELET COUNT 143 x10e3/uL (140-360); RED BLOOD COUNT 3.95 x10e6/uL (3.6-5.1); RED CELL DISTRIBUTION WIDTH 15.1 % (11.7-14.4); WHITE BLOOD COUNT 13.96 x10e3/uL (4.8-10.8)
[2024-03-24] MEDS: LACTATED RINGER S IV ONE (17:14)
[2024-03-24] MEDS: ACETAMINOPHEN 1000 MG/100 ML IV ONE (17:14)
[2024-03-24 17:17] LABS: CORONAVIRUS COVID-19 AG NEGATIVE (NEGATIVE); INFLUENZA A AG NEGATIVE (NEGATIVE); INFLUENZA B AG NEGATIVE (NEGATIVE)
[2024-03-24 17:19] LABS: INR 1.06; PARTIAL THROMBOPLASTIN TIME 28.8 seconds (23.8-35.5); PROTHROMBIN TIME 14.4 seconds (11.9-14.5)
[2024-03-24 17:28] LABS: ALBUMIN 2.7 g/dL (3.5-5.0); ALBUMIN/GLOBULIN RATIO 0.6 (0.8-2.0); ANION GAP 16.9 mmol/L (8-16); BILIRUBIN,TOTAL 0.7 mg/dL (0.2-1.2); CALCIUM 9.2 mg/dL (8.4-10.2); CREATININE, SERUM 0.99 mg/dL (0.57-1.11); POTASSIUM 3.9 mmol/L (3.5-5.1); TOTAL PROTEIN 6.9 g/dL (6.5-8.1)
[2024-03-24 17:34] LABS: TROPONIN I 0.018 ng/mL (0-0.300)
[2024-03-24 18:00] LABS: BILIRUBIN,URINE NEGATIVE (NEGATIVE); CLARITY,URINE SL CLOUDY (CLEAR); COLOR,URINE YELLOW (YELLOW); GLUCOSE, URINE NEGATIVE (NEGATIVE); KETONES,URINE TRACE (NEGATIVE); LEUKOCYTE ESTERASE ,URINE SMALL (NEGATIVE); NITRITE,URINE POSITIVE (NEGATIVE); PH,URINE 5.5 (5 - 7); PROTEIN,URINE DIPSTICK >=300 (NEGATIVE); URINE UROBILINOGEN 0.2 mg/dL (0.2 - 1)
[2024-03-24 18:04] LABS: BACTERIA,URINE MANY /HPF; EPITHELIAL CELLS,URINE FEW /LPF; WBC,URINE (MAN) >50 /HPF (0-5)
[2024-03-24 18:30] VITALS: TEMP 100.3
[2024-03-24] MEDS ORDERED: ONDANSETRON HCL INJ 2MG/ML 2ML 2 MG/ML VIAL IV PRN (18:45)
[2024-03-24] MEDS: Vancomycin IV 1 GM in SODIUM CHLORIDE 0.9% 250ML 250 ML IV ONE (18:59)
[2024-03-24 20:30] VITALS: PULSE 92; RESP 20
[2024-03-24 21:00] VITALS: BP 128/68; PULSE 85; RESP 21; TEMP 98.1; O2SAT 97
[2024-03-24 21:42] VITALS: BP 128/68; PULSE 88; RESP 21; TEMP 98.6; O2SAT 97
[2024-03-24] MEDS ORDERED: OMEPRAZOLE40 MG PO (21:54)
[2024-03-24] MEDS ORDERED: CYCLOBENZAPRINE10 MG PO (21:55)
[2024-03-24] MEDS: SODIUM CHLORIDE 0.9% 1000ML 1,000 ML IV SCH (22:23)
[2024-03-24 23:42] VITALS: BP 144/87; PULSE 135; RESP 23; TEMP 103.2; O2SAT 100
[2024-03-25] MEDS: LOPERAMIDE HCL 2 MG CAP PO ONE
[2024-03-25] MEDS: ACETAMINOPHEN 325 MG TAB PO PRN (00:01)
[2024-03-25] MEDS: METOPROLOL TARTRATE 25 MG TAB PO ONE (00:02)
[2024-03-25 04:00] VITALS: BP 102/62; PULSE 77; RESP 20; TEMP 98.3; O2SAT 99
[2024-03-25] MEDS ORDERED: ZOLPIDEM TARTRATE 10 MG TAB PO PRN (05:30)
[2024-03-25] MEDS ORDERED: ALPRAZOLAM 0.5 MG TAB PO PRN (05:30)
[2024-03-25] MEDS ORDERED: HYDROCODONE/APAP 10MG-325MG TAB PO PRN (05:30)
[2024-03-25 08:20] LABS: BASOPHILS # (AUTO) 0.1 (0.0-0.1); BASOPHILS % 0.6 % (0.0-1.0); EOSINOPHILS % 0.2 % (0.0-6.0); HEMATOCRIT 29.5 % (34.2-44.1); HEMOGLOBIN 9.3 g/dL (12.0-16.0); LYMPHOCYTES % 11.2 % (18.0-39.1); MEAN CORPUSCULAR HEMOGLOBIN 28.6 pg (28-32); MEAN CORPUSCULAR HGB CONC 31.5 g/dL (31-35); MEAN CORPUSCULAR VOLUME 90.8 fL (81-99); MONOCYTES # (AUTO) 0.7 (0.2-0.8); MONOCYTES % 7.4 % (4.4-11.3); NEUTROPHILS # (AUTO) 7.1 (2.1-6.9); NEUTROPHILS % 80.1 % (38.7-80.0); PLATELET COUNT 125 x10e3/uL (140-360); RED BLOOD COUNT 3.25 x10e6/uL (3.6-5.1); RED CELL DISTRIBUTION WIDTH 15.3 % (11.7-14.4); WHITE BLOOD COUNT 8.83 x10e3/uL (4.8-10.8)
[2024-03-25 08:45] LABS: ALBUMIN/GLOBULIN RATIO 0.6 (0.8-2.0); ANION GAP 13.6 mmol/L (8-16); BILIRUBIN,TOTAL 0.7 mg/dL (0.2-1.2); CALCIUM 8.5 mg/dL (8.4-10.2); CREATININE, SERUM 0.87 mg/dL (0.57-1.11); POTASSIUM 3.6 mmol/L (3.5-5.1); TOTAL PROTEIN 5.3 g/dL (6.5-8.1)
[2024-03-25 09:02] LABS: TROPONIN I 0.031 ng/mL (0-0.300)
[2024-03-25] MEDS: LOPERAMIDE HCL 2 MG CAP PO PRN (09:13)
[2024-03-25] MEDS: COLESTIPOL HCL 1 G TAB PO SCH (09:13)
[2024-03-25] MEDS: PRIMIDONE 50 MG TAB PO SCH (09:13)
[2024-03-25] MEDS: METOPROLOL TARTRATE 25 MG TAB PO SCH (09:14)
[2024-03-25] MEDS: ALLOPURINOL 100 MG TAB PO SCH (09:14)
[2024-03-25] MEDS: PANTOPRAZOLE SOD 40 MG TABEC PO SCH (09:19)
[2024-03-25] MEDS: LIOTHYRONINE SODIUM 5 MCG TAB PO SCH (09:19)
[2024-03-25] MEDS: LEVOTHYROXINE SODIUM 50 MCG TAB PO SCH (09:19)
[2024-03-25 09:29] VITALS: BP 110/72; PULSE 69; RESP 18; TEMP 97.3; O2SAT 99
[2024-03-25 11:25] VITALS: BP 110/72; PULSE 69; RESP 18; TEMP 97.3; O2SAT 99
[2024-03-25] MEDS: MEROPENEM 1 GM in SODIUM CHLORIDE 0.9% 100 ML IV SCH (13:49)
[2024-03-25] MEDS: PAROXETINE HCL 12.5 MG TABSR PO SCH (17:10)
[2024-03-25 19:49] VITALS: BP 136/77; PULSE 89; RESP 18; TEMP 99.1; O2SAT 92
[2024-03-25 20:24] VITALS: BP 136/77; PULSE 89; RESP 18; TEMP 99.1; O2SAT 92
[2024-03-25] MEDS: ARIPIPRAZOLE 2 MG TABLET PO SCH (21:17)
[2024-03-25] MEDS: CYCLOBENZAPRINE HCL 10 MG TAB PO SCH (21:18)
[2024-03-25] MEDS: ATORVASTATIN 40 MG TAB PO SCH (21:18)
[2024-03-25 23:39] VITALS: BP 104/66; PULSE 74; RESP 18; TEMP 98.4; O2SAT 97
[2024-03-26] VITALS (8 sets, daily range): BP systolic 131–156; BP diastolic 53–80; PULSE 70–85; RESP 18–20; TEMP 97.9–100.6; O2SAT 96–100
[2024-03-26 05:26] LABS: BASOPHILS # (AUTO) 0.1 (0.0-0.1); BASOPHILS % 0.8 % (0.0-1.0); EOSINOPHILS # (AUTO) 0.2 (0.0-0.4); EOSINOPHILS % 2.8 % (0.0-6.0); HEMATOCRIT 31.2 % (34.2-44.1); HEMOGLOBIN 9.7 g/dL (12.0-16.0); LYMPHOCYTES # (AUTO) 1.1 (1.0-3.2); LYMPHOCYTES % 13.4 % (18.0-39.1); MEAN CORPUSCULAR HEMOGLOBIN 28.9 pg (28-32); MEAN CORPUSCULAR HGB CONC 31.1 g/dL (31-35); MEAN CORPUSCULAR VOLUME 92.9 fL (81-99); MONOCYTES # (AUTO) 0.6 (0.2-0.8); MONOCYTES % 7.7 % (4.4-11.3); NEUTROPHILS # (AUTO) 5.9 (2.1-6.9); NEUTROPHILS % 74.8 % (38.7-80.0); PLATELET COUNT 114 x10e3/uL (140-360); RED BLOOD COUNT 3.36 x10e6/uL (3.6-5.1); RED CELL DISTRIBUTION WIDTH 15.6 % (11.7-14.4); WHITE BLOOD COUNT 7.91 x10e3/uL (4.8-10.8)
[2024-03-26 05:53] LABS: ALBUMIN/GLOBULIN RATIO 0.6 (0.8-2.0); ANION GAP 12.7 mmol/L (8-16); BILIRUBIN,TOTAL 0.5 mg/dL (0.2-1.2); CALCIUM 8.6 mg/dL (8.4-10.2); CREATININE, SERUM 0.8 mg/dL (0.57-1.11); MAGNESIUM 1.5 MG/DL (1.3-2.1); POTASSIUM 3.7 mmol/L (3.5-5.1); TOTAL PROTEIN 5.5 g/dL (6.5-8.1)
[2024-03-26 06:12] LABS: TROPONIN I 0.014 ng/mL (0-0.300)
[2024-03-26 14:21] LABS: TROPONIN I 0.008 ng/mL (0-0.300)
[2024-03-27] VITALS (8 sets, daily range): BP systolic 139–161; BP diastolic 51–84; PULSE 67–84; RESP 18–20; TEMP 98.2–99; O2SAT 94–98
[2024-03-27] MEDS: MAGNESIUM SULFATE 2GM/50ML 50 ML IV ONE (03:50)
[2024-03-28 03:08] VITALS: BP 151/81; PULSE 71; RESP 18; TEMP 98.2; O2SAT 94
[2024-03-28 08:00] VITALS: BP 173/82; PULSE 66; RESP 20; TEMP 98; O2SAT 98
[2024-03-28 11:09] VITALS: BP 151/76; PULSE 67; RESP 22; TEMP 98.7; O2SAT 98
[2024-03-28 16:00] VITALS: BP 190/88; PULSE 61; RESP 19; TEMP 98; O2SAT 97
[2024-03-28] MEDS: OLMESARTAN MEDOXOMIL 5 MG TABLET PO SCH (16:45)
[2024-03-28 20:12] VITALS: BP 152/70; PULSE 60; RESP 18; TEMP 98.2; O2SAT 98
[2024-03-28 21:00] VITALS: BP 152/70; PULSE 60; RESP 18; TEMP 98.2; O2SAT 98
[2024-03-29] VITALS (8 sets, daily range): BP systolic 160–188; BP diastolic 75–88; PULSE 58–69; RESP 17–21; TEMP 97.6–98.6; O2SAT 95–98
[2024-03-29 07:24] LABS: BASOPHILS # (AUTO) 0.1 (0.0-0.1); BASOPHILS % 1.1 % (0.0-1.0); EOSINOPHILS # (AUTO) 0.3 (0.0-0.4); EOSINOPHILS % 3.6 % (0.0-6.0); HEMATOCRIT 31.6 % (34.2-44.1); HEMOGLOBIN 9.8 g/dL (12.0-16.0); LYMPHOCYTES % 27.7 % (18.0-39.1); MEAN CORPUSCULAR HEMOGLOBIN 28.7 pg (28-32); MEAN CORPUSCULAR VOLUME 92.7 fL (81-99); MONOCYTES # (AUTO) 0.6 (0.2-0.8); MONOCYTES % 8.6 % (4.4-11.3); NEUTROPHILS # (AUTO) 4.2 (2.1-6.9); PLATELET COUNT 182 x10e3/uL (140-360); RED BLOOD COUNT 3.41 x10e6/uL (3.6-5.1); WHITE BLOOD COUNT 7.23 x10e3/uL (4.8-10.8)
[2024-03-29 07:51] LABS: ALBUMIN 2.4 g/dL (3.5-5.0); ALBUMIN/GLOBULIN RATIO 0.6 (0.8-2.0); ANION GAP 12.9 mmol/L (8-16); BILIRUBIN,TOTAL 0.4 mg/dL (0.2-1.2); CALCIUM 9.3 mg/dL (8.4-10.2); CREATININE, SERUM 0.72 mg/dL (0.57-1.11); POTASSIUM 3.9 mmol/L (3.5-5.1); TOTAL PROTEIN 6.1 g/dL (6.5-8.1)
[2024-03-30] VITALS: BP 154/64; PULSE 60; RESP 17; TEMP 98.4; O2SAT 96
[2024-03-30 04:00] VITALS: BP 179/85; PULSE 65; RESP 18; TEMP 98.2; O2SAT 98
[2024-03-30 08:15] VITALS: BP 163/92; PULSE 70; RESP 20; TEMP 99.4; O2SAT 98
[2024-03-30 08:28] VITALS: BP 162/92; PULSE 70; RESP 20; TEMP 99.4; O2SAT 100
[2024-03-30 09:04] VITALS: BP 163/92; PULSE 70
[2024-03-30] MEDS ORDERED: ONDANSETRON HCL 4 MG ORAL DISINTEGRATING TAB PO PRN (10:00)
== END 2024-03-30 09:56 | disposition home or self-care (01) | DRG 872 ==
LOC: ER 16:52 → ERHOLD 18:48 → MED/SURG 20:53 → MED/SURG2 03-28 21:38
PROVIDERS: ADMIT Internal Medicine; ATTEND Internal Medicine
DX: A41.51 Sepsis due to Escherichia coli [E. coli] (principal); E87.20 Acidosis, unspecified; N39.0 Urinary tract infection, site not specified; Z16.12 Extended spectrum beta lactamase (ESBL) resistance; B96.20 Unspecified Escherichia coli [E. coli] as the cause of diseases classified elsewhere; R65.20 Severe sepsis without septic shock; D69.6 Thrombocytopenia, unspecified; D64.9 Anemia, unspecified; I49.1 Atrial premature depolarization; E66.01 Morbid (severe) obesity due to excess calories; Z68.35 Body mass index [BMI] 35.0-35.9, adult; I10 Essential (primary) hypertension; M10.9 Gout, unspecified; E78.5 Hyperlipidemia, unspecified; E03.9 Hypothyroidism, unspecified; K21.9 Gastro-esophageal reflux disease without esophagitis; F41.9 Anxiety disorder, unspecified; R00.0 Tachycardia, unspecified; Z11.52 Encounter for screening for COVID-19; Z79.899 Other long term (current) drug therapy; Z79.82 Long term (current) use of aspirin
CPT/HCPCS: 36415; 71045; 80053; 81001; 82550; 82948; 83605; 83735; 84484; 85025; 85610; 85730; 87040; 87071; 87086; 87186; 87205; 93005; 99284; J0696; J2185; J3475; J7030; J7050

== ENCOUNTER → 2024-07-25 | Day surgery (SDC) | payer MEDICARE ==
[2024-07-20 10:56] LABS: BASOPHILS # (AUTO) 0.1 (0.0-0.1); BASOPHILS % 0.6 % (0.0-1.0); EOSINOPHILS # (AUTO) 0.3 (0.0-0.4); EOSINOPHILS % 2.8 % (0.0-6.0); HEMATOCRIT 32.8 % (34.2-44.1); HEMOGLOBIN 10.4 g/dL (12.0-16.0); LYMPHOCYTES # (AUTO) 2.5 (1.0-3.2); LYMPHOCYTES % 26.3 % (18.0-39.1); MEAN CORPUSCULAR HEMOGLOBIN 27.9 pg (28-32); MEAN CORPUSCULAR HGB CONC 31.7 g/dL (31-35); MEAN CORPUSCULAR VOLUME 87.9 fL (81-99); MONOCYTES % 10.4 % (4.4-11.3); NEUTROPHILS # (AUTO) 5.6 (2.1-6.9); NEUTROPHILS % 59.5 % (38.7-80.0); PLATELET COUNT 242 x10e3/uL (140-360); RED BLOOD COUNT 3.73 x10e6/uL (3.6-5.1); RED CELL DISTRIBUTION WIDTH 17.5 % (11.7-14.4); WHITE BLOOD COUNT 9.35 x10e3/uL (4.8-10.8)
[2024-07-20 11:19] LABS: INR 0.97; PARTIAL THROMBOPLASTIN TIME 28.1 seconds (23.8-35.5); PROTHROMBIN TIME 13.5 seconds (11.9-14.5)
[2024-07-20 11:27] LABS: ANION GAP 14.7 mmol/L (8-16); CALCIUM 9.6 mg/dL (8.4-10.2); CREATININE, SERUM 1.35 mg/dL (0.57-1.11); POTASSIUM 4.7 mmol/L (3.5-5.1)
[~2024-07-25] MED LIST changes: +B12 ACTIVE1000 MCG; +BUPIVACAINE 0.25% 30ML SDV ONE; +CYCLOBENZAPRINE10 MG PO; +D3-5000125 MCG; +LIDOCAINE HCL 2% LOCAL INJ 5 ML SDV VIAL INJ ONE; +OLMESARTAN-HCT1 EAC1 PO; +OMEPRAZOLE40 MG PO; +OZEMPIC2 MG/0.75; +PROPOFOL IV EMULSION 10 MG/ML 20 ML VIAL ONE
[2024-07-25] MEDS: LACTATED RINGER'S 1,000 ML ONE (08:27)
[2024-07-25 10:23] VITALS: TEMP 97
[2024-07-25 10:45] VITALS: BP 106/61; PULSE 65; RESP 18; O2SAT 100
== END | disposition home or self-care (01) ==
LOC: OR 08:05
PROVIDERS: ATTEND Physical Medicine & Rehabilitation Pain Medicine
DX: M54.16 Radiculopathy, lumbar region (principal); G47.33 Obstructive sleep apnea (adult) (pediatric); I10 Essential (primary) hypertension; E78.5 Hyperlipidemia, unspecified; E66.01 Morbid (severe) obesity due to excess calories; K21.9 Gastro-esophageal reflux disease without esophagitis; F41.9 Anxiety disorder, unspecified; F32.A Depression, unspecified; N28.89 Other specified disorders of kidney and ureter; Z88.6 Allergy status to analgesic agent; Z88.0 Allergy status to penicillin; Z01.812 Encounter for preprocedural laboratory examination; Z79.82 Long term (current) use of aspirin; Z79.85 Long-term (current) use of injectable non-insulin antidiabetic drugs; Z79.899 Other long term (current) drug therapy
CPT/HCPCS: 36415 ×2; 64483; 64484; 80048; 82948; 85025; 85610; 85730; J2003; J2704; J7121; 77002

== ENCOUNTER 2024-12-07 13:39 | Emergency (ER) | payer MEDICARE ==
[~2024-12-07] VITALS: Ht 152.4 cm; Wt 83.0 kg
[~2024-12-07 13:39] MED LIST changes: -BUPIVACAINE 0.25% 30ML SDV ONE; -LIDOCAINE HCL 2% LOCAL INJ 5 ML SDV VIAL INJ ONE; -PROPOFOL IV EMULSION 10 MG/ML 20 ML VIAL ONE
[2024-12-07 14:00] VITALS: TEMP 98.4
[2024-12-07 16:06] VITALS: TEMP 98
[2024-12-07 16:16] VITALS: PULSE 80; RESP 16; O2SAT 98
[2024-12-07] MEDS: KETAMINE HCL INJ 50 MG/ML 10 ML VIAL IV ONE (16:26)
[2024-12-07] MEDS: PROPOFOL IV EMULSION 10 MG/ML 20 ML VIAL IV STA (16:26)
[2024-12-07 17:50] VITALS: PULSE 88; RESP 18
[2024-12-07 18:06] VITALS: BP 111/59; PULSE 80; RESP 16; O2SAT 100
== END 2024-12-07 17:50 | disposition home or self-care (01) ==
LOC: ER 13:43
DX: S43.084A Other dislocation of right shoulder joint, initial encounter (principal); X58.XXXA Exposure to other specified factors, initial encounter; Y92.89 Other specified places as the place of occurrence of the external cause; I10 Essential (primary) hypertension; E11.9 Type 2 diabetes mellitus without complications; E78.5 Hyperlipidemia, unspecified; E03.9 Hypothyroidism, unspecified
CPT/HCPCS: 23655; 73020; 73030; 94799; 99283; J2704